=== PATIENT | female | born 1960 | race Caucasian/White ===

== ENCOUNTER 2018-12-09 14:16 | Emergency (ER) | payer OTHER ==
[~2018-12-09] VITALS: Wt 71.2 kg
[2018-12-09] MEDS ORDERED: LOPE-117 PO (17:20)
--- NOTE | 2018-12-09 17:27 | ERD ---
ER Documentation Chief Complaint Chief Complaint bib self, cc: headache, diarrhea x 4 days HPI 58-year-old female patient presents with complaint of stomachache, headache, diarrhea since yesterday. Patient returned from [facility] today. Vomiting x1 yesterday no nausea today, no fevers. Complains of periumbilical pain. ROS All systems reviewed and are negative except as per history of present illness. Medications Home Meds Active Scripts Cephalexin* (Keflex*) 500 Mg Capsule, 500 MG PO BID for 7 Days, #14 CAP Prov:JONES BRADY NP 12/09/18 Loperamide HCl (Imodium A-D) 2 Mg Capsule, 2 MG PO Q4 PRN for DIARRHEA for 2 Days, #5 CAP 2 tabs after next loose stool, than 1 tab for each loose stool after, do not exceed 4 tabs in 24 hour Prov:JONES BRADY NP 12/09/18 Allergies Allergies: Coded Allergies: No Known Allergy (Unverified , 12/09/18) PMhx/Soc Hypertension FmHx Family History: No diabetes, No coronary disease, No other Physical Exam Vitals Vital Signs Date Temp Pulse Resp B/P (MAP) Pulse Ox O2 O2 Flow FiO2 Time Delivery Rate 12/09/18 97.8 63 18 145/73 100 Room Air 18:39 (97) 12/09/18 98.1 62 19 129/67 100 14:20 (87) Physical Exam Const: No acute distress Head: Atraumatic Eyes: Normal Conjunctiva ENT: Normal External Ears, Nose and Mouth. Neck: Full range of motion. No meningismus. Resp: Clear to auscultation bilaterally Cardio: Regular rate and rhythm, no murmurs Abd: Soft, non distended, tender at periumbilical region. Normal bowel sounds. No masses, no hepato-or splenomegaly, no bruising. Negative Valdes sign. Skin: No petechiae or rashes Back: No midline or flank tenderness Ext: No cyanosis, or edema Neur: Awake and alert Psych: Normal Mood and Affect Results 24 hrs Laboratory Tests Test 12/09/18 17:24 Bedside Urine pH (LAB) 5.5 Bedside Urine Protein (LAB) Trace Bedside Urine Glucose (UA) Negative Bedside Urine Ketones (LAB) Negative Bedside Urine Blood 1+ Bedside Urine Nitrite (LAB) Negative Bedside Urine Leukocyte Esterase (L 1+ Current Medications Medications Dose Sig/Abi Start Time Status Last (Trade) Ordered Route PRN Stop Time Admin Dose Reason Admin 40 ml ONCE ONCE 12/09/18 DC 12/09/18 Miscellaneous PO 17:30 17:20 Medication 12/09/18 17:31 (Gi Cocktail (2)) Procedures/MDM Urine Results - 72 Hrs Test 12/09/18 17:24 Bedside Urine pH (LAB) 5.5 (5.0-8.5) Bedside Urine Protein (LAB) Trace (NEGATIVE) H Bedside Urine Glucose (UA) Negative (NEGATIVE) Bedside Urine Ketones (LAB) Negative (NEGATIVE) Bedside Urine Blood 1+ (NEGATIVE) H Bedside Urine Nitrite (LAB) Negative (NEGATIVE) Bedside Urine Leukocyte Esterase (L 1+ (NEGATIVE) H Patient will be treated for UTI with instructions to complete antibiotics and return for worsening symptoms including flank pain, dysuria, hematuria. Patient was provided with antidiarrheal and instructions to increase hydration and avoid offending foods. This patients evaluation indicates an uncomplicated urinary tract infection. Renal obstruction and/or sepsis are not felt to be present. The patient has the ability to stay well hydrated and complete an appropriate oral antibiotic course. Appropriate warnings have been provided and the patient has been instructed to return if any acute worsening occurs. Departure Diagnosis: Primary Impression: Diarrhea Additional Impression: Abdominal pain Condition: Stable Patient Instructions: Abdominal Pain, Self-Care for Vomiting and Diarrhea Referrals: [facility] YOU HAVE RECEIVED A MEDICAL SCREENING EXAM AND THE RESULTS INDICATE THAT YOU DO NOT HAVE A CONDITION THAT REQUIRES URGENT TREATMENT IN THE EMERGENCY DEPARTMENT. FURTHER EVALUATION AND TREATMENT OF YOUR CONDITION CAN WAIT UNTIL YOU ARE SEEN IN YOUR DOCTORS OFFICE WITHIN THE NEXT 1-2 DAYS. IT IS YOUR RESPONSIBILITY TO MAKE AN APPOINTMENT FOR FOLOW-UP CARE. IF YOU HAVE A PRIMARY DOCTOR --you should call your primary doctor and schedule an appointment IF YOU DO NOT HAVE A PRIMARY DOCTOR YOU CAN CALL OUR PHYSICIAN REFERRAL HOTLINE AT IF YOU CAN NOT AFFORD TO SEE A PHYSICIAN YOU CAN CHOSE FROM THE FOLLOWING [facility] [address] [facility] [address] [facility] [address] [facility] [address] [facility] [address] [facility]. [facility] [address] Additional Instructions: Thank you very much for allowing us to participate in your care. Your health and safety is our top priority at [facility]. Call your primary care doctor TOMORROW for an appointment during the next 2-4 days and bring all the information and medications prescribed. Have prescriptions filled and follow precisely the directions on the label. If the symptoms get worse and your provider is unavailable, return to the Emergency Department immediately. Stay well-hydrated. Drink frequent sips of beverage including water and Gatorade. Use medications as prescribed. Return to emergency room for worsening of abdominal pain or diarrhea not resolving in 3-5 days. JONES BRADY NP Dec 09, 2018 17:27 MEENAKSHI DE LA GARZA MD Dec 10, 2018 16:09
[2018-12-09] MEDS ORDERED: LIDOCAINE/MYLANTA 40 ML BTL PO ONE (17:30)
[2018-12-09] MEDS ORDERED: CEPH-443 PO (18:34)
[2018-12-09 18:39] VITALS: BP 145/73; PULSE 63; RESP 18
== END 2018-12-09 18:43 | disposition home or self-care (01) ==
LOC: FTE 14:16
DX: R19.7 Diarrhea, unspecified (principal); R10.9 Unspecified abdominal pain
CPT/HCPCS: 81003; Z7502; Z7610; 99283